=== PATIENT | male | born 1960 | race Caucasian/White ===

== ENCOUNTER 2017-01-10 09:34 | Emergency (ER) | payer OTHER ==
[2017-01-10 09:45] VITALS: BP 136/91
--- NOTE | 2017-01-10 10:17 | EDM.PDOC ---
ED HPI GENERAL MEDICAL PROBLEM - General Chief Complaint: Head Injury Stated Complaint: FELL ON ICE/ MEMORY LOSS Time Seen by Provider: 01/10/17 10:05 Source of Information: Reports: Family (co workers.) History Limitations: Reports: Altered Mental Status (amnesia for any falls tis am. ) - History of Present Illness INITIAL COMMENTS - FREE TEXT/NARRATIVE: 56-year-old male presents to the ED for evaluation of confusion. 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 She has no recollection of falling. So therefore unclear whether he hit his head but is suspect suspect as he is acting confused and has amnesia for the event. He murmurs 86 of blood pressure medication and something for his cholesterol and a baby aspirin daily. He denies pain anywhere other than his right occipital scalp. Reports a headache grade 3-4 out of 10. No nausea or vomiting. No visual changes did not need help to walk. No balance issues. It's unclear whether either fall was witnessed. It's unclear to me how is identified that he actually fell. There is some suggestion that coworkers did see him fall once but they aren't sure if he hit his head. Onset: Today Onset Date: 01/10/17 Onset Time: 07:30 (First fall was reported to be around 0730 hrs. this morningWas between 0 8:30 and 0900 hrs. this morning.) Duration: Hour(s): (Confused with amnesia for the event.) Location: Reports: Head (Right occipital scalp discomfort.) Quality: Reports: Ache Severity: Mild Improves with: Reports: None Worsens with: Reports: None Context: Reports: Trauma Associated Symptoms: Reports: Confusion, Other (Amnesia for the event.). 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: Reports: Other (see below) Headache Pain Score (Numeric/FACES): 6 - Related Data Allergies Allergy/AdvReac Type Severity Reaction Status Date / Time No Known Allergies Allergy Verified 01/10/17 09:45 Home Meds: Home Meds Fish Oil/Center-3 Fatty Acids [Fish Oil 1,000 MG] 2,000 mg PO BID 08/27/15 [ History] Pravastatin [Pravachol] 40 mg PO DAILY 08/27/15 [History] Aspirin 81 mg PO BEDTIME #90 tab.chew 08/29/15 [Rx] Aspirin 81 mg PO DAILY 01/10/17 [History] Hydrochlorothiazide 12.5 mg PO 01/10/17 [History] Lisinopril [Zestril] 20 mg PO 01/10/17 [History] Past Medical History HEENT History: Reports: Impaired Vision Other HEENT History: wears glasses Cardiovascular History: Reports: High Cholesterol, Hypertension, Other (See Below) Other Cardiovascular History: high triglycerides - Past Surgical History HEENT Surgical History: Reports: None Social & Family History - Tobacco Use Smoking Status *Q: Never Smoker Second Hand Smoke Exposure: No - Alcohol Use Days Per Week of Alcohol Use: 1 Number of Drinks Per Day: 2 Total Drinks Per Week: 2 - Recreational Drug Use Recreational Drug Use: No - Living Situation & Occupation Living situation: Reports: Single Occupation: Employed ED ROS GENERAL - Review of Systems Review Of Systems: See Below Constitutional: Denies: Fever, Chills, Malaise, Weakness, Fatigue, Night Sweats , Diaphoresis, Decreased Appetite, Weight Loss HEENT: Reports: No Symptoms. Denies: Contact Lenses, Dental Pain, Ear Discharge , Eye Discharge, Eye Pain, Glasses, Hearing Loss, Nosebleed, Sinus Problem, Throat Pain, Throat Swelling, Vision Change Respiratory: Reports: No Symptoms, Other Cardiovascular: Reports: Blood Pressure Problem Endocrine: Reports: No Symptoms GI/Abdominal: Reports: No Symptoms : Reports: No Symptoms Musculoskeletal: Reports: No Symptoms Skin: Reports: No Symptoms Neurological: Reports: Confusion Psychiatric: Reports: No Symptoms Hematologic/Lymphatic: Reports: No Symptoms Immunologic: Reports: No Symptoms ED EXAM, HEAD INJURY - Physical Exam Exam: See Below Exam Limited By: Other (He is alert and oriented now. But he reports he does not recall falling whatsoever.) General Appearance: Alert, WD/WN, No Apparent Distress Head: Other (Mild tenderness right occipital scalp superiorly. No open wounds or hematoma evident. Tenderness localized to this area.) Nexus Criteria: No: Posterior, Midline Cervical Tenderness, Evidence of Intoxication, Altered Level of Consciousness, Focal Neurological Deficit, Painful Distraction Injuries Eyes: Bilateral Eye: Normal Inspection, PERRL Ears: Normal External Exam, Normal TMs Throat/Mouth: Normal Inspection, Normal Lips, Normal Teeth, Normal Oropharynx, Other (No oropharyngeal injuries.). No: Tongue Swelling, Tonsillar Erythema, Tonsillar Exudate Neck: Non-Tender, Full Range of Motion, Normal Alignment, Normal Inspection Respiratory: No Respiratory Distress, Lungs Clear, Normal Breath Sounds, No Accessory Muscle Use, Other Cardiovascular: Normal Peripheral Pulses (No pain on compression of his ribs or sternum or clavicles.), Regular Rate, Rhythm, No Edema, No Gallop, No Murmur GI/Abdominal Exam: Normal Bowel Sounds, Soft, Non-Tender, No Organomegaly (Male) Exam: No Hernia Back Exam: Normal Inspection, Full Range of Motion, Other (Some mild tenderness to palpation over the right L4-L5 transverse process area. No contusions or abrasions are evident. 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 As Tested, No Motor/Sensory Deficits, Alert, Normal Mood/Affect, Oriented x 3 Skin: Normal Color, Warm/Dry - Heather Coma Score Best Eye Response ([place]): (4) Open Spontaneously Best Verbal Response (Heather): (5) Oriented Best Motor Response (Heather): (6) Obeys Commands Heather Total: 15 Course - Vital Signs Last Recorded V/S: Last Vital Signs Temp 36.5 C 01/10/17 09:41 Pulse 109 H 01/10/17 09:41 Resp 16 01/10/17 09:41 BP 136/91 H 01/10/17 09:41 Pulse Ox 100 01/10/17 09:41 - Orders/Labs/Meds Labs: Laboratory Tests 01/10/17 01/10/17 01/10/17 Range/Units 10:35 10:35 10:35 WBC 9.39 H (4.23-9.07) K/mm3 RBC 4.65 (4.63-6.08) M/mm3 Hgb 13.4 L (13.7-17.5) gm/L Hct 40.3 (40.1-51.0) % MCV 86.7 (79.0-92.2) fl MCH 28.8 (25.7-32.2) pg MCHC 33.3 (32.2-35.5) g/dl RDW Std Deviation 41.4 (35.1-43.9) fL Plt Count 232 (163-337) K/mm3 MPV 10.5 (9.4-12.3) fl Neutrophils % (Manual) 74 H (40-60) % Band Neutrophils % 0 (0-10) % Lymphocytes % (Manual) 20 (20-40) % Atypical Lymphs % 0 % Monocytes % (Manual) 2 (2-10) % Eosinophils % (Manual) 3 (0.8-7.0) % Basophils % (Manual) 1 (0.2-1.2) Platelet Estimate Adequate RBC Morph Comment Normal Sodium 141 (136-145) mEq/L Potassium 3.9 (3.5-5.1) mEq/L Chloride 106 (98-107) mEq/L Carbon Dioxide 24 (21-32) mEq/L Anion Gap 14.9 (5-15) BUN 18 (7-18) mg/dL Creatinine 1.4 H (0.7-1.3) mg/dL Est Cr Clr Drug Dosing 66.58 mL/min Estimated GFR (MDRD) 52 (>60) mL/min BUN/Creatinine Ratio 12.9 L (14-18) Glucose 122 H (74-106) mg/dL Serum Osmolality 294 (280-300) mosm/kg Calcium 8.9 (8.5-10.1) mg/dL Total Bilirubin 0.7 (0.2-1.0) mg/dL AST 26 (15-37) U/L ALT 38 (16-63) U/L Alkaline Phosphatase 61 (46-116) U/L C-Reactive Protein < 0.2 (<1.0) mg/dL Total Protein 7.2 (6.4-8.2) g/dl Albumin 3.4 (3.4-5.0) g/dl Globulin 3.8 gm/dL Albumin/Globulin Ratio 0.9 L (1-2) - Radiology Interpretation Free Text/Narrative:: 56-year-old male presents to the ED with [address] 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 Apparently had a witnessed fall in 0730 hrs. this morning and then apparently fell again outside on slippery snow at between 8:30 and 9:00 this morning. He has no recollection of falling or hitting his head. I amnesia for the event. Does complain of some mild right-sided occipital headache. There is localized tenderness and swelling to this area. No other significant injuries are identified on examination. There is a minimal abrasion to his left olecranon process of elbow. Some minimal tenderness to his right lower back over the transverse processes of L4 and L5. No nausea or vomiting. No evidence of oropharyngeal injury. Plan CT head to be done. By history he has suffered a closed head injury with concussion. Routine labs will be obtained. - Re-Assessments/Exams Free Text/Narrative Re-Assessment/Exam: 01/10/17 11:31 Labs are done. White count was 9.39 with a normal differential 74 % neutrophils no bands. Hemoglobin 13.4 hematocrit of 40.3. Sodium 141 potassium 3.9 chloride 106 bicarbonate and a gap is 14.9. BUNs 18 creatinine is 1.4 with a estimated GFR 52. Glucose 122. Calcium 8.9 liver function normal C- reactive protein less than 0.2. 01/10/17 11:45: CT of the brain reveals grossly dilated lateral ventricles with compression of the white matter in loss of most of the sulci. This is compatible with benign intracranial hypertension. I therefore reassess the patient I could not identify any papilledema and his neuro exam is otherwise completely normal. Therefore this problem is coincidental finding but does need further investigation. Therefore spoke with Dr. Damon neurologist at [facility] who referred me to Dr. Soto-- neurosurgeon. When the neurosurgeon review the CT he identified that this patient was most likely to benefit from a rarely done surgical procedure with decompression of the third ventricle versus having a ventriculoperitoneal shunt placed. He does not do this procedure and therefore suggested [facility] in [place]. I was able to speak with Dr. Pham commissioned fire officer neurosurgeon who referred me to Dr. Geovany López who apparently does do this procedure. I therefore was able to speak with his scheduling nurse and she will schedule an appointment and get a hold of Mr. Goldsmith. I also made his primary care physician Dr. Geronimo aware of the findings today. As far as his injuries are concerned today he has suffered a concussion due to the fact that he has amnesia for the event. It's unclear whether or not his current benign intracranial hypertension issue caused him to fall. An indurated put him off work for the next 5 days. He may return to work with limited pushing pulling or lifting and carrying duties. I suspect he will get called in [place] next week at any rate. Advise is okay to use Tylenol and Motrin when necessary for headache and his right buttock hip pain which is becoming more painful since he's been here reduce swelling. Departure - Departure Time of Disposition: 12:40 Disposition: Home, Self-Care 01 Condition: Fair Clinical Impression: Benign intracranial hypertension, Contusion of lower back and pelvis, initial encounter Head injury, closed, with concussion Qualifiers: Encounter type: initial encounter Loss of consciousness presence/duration: without LOC Qualified Code(s): S06.0X0A - Concussion without loss of consciousness, initial encounter - Discharge Information Instructions: Head Injury, Adult, Idiopathic Intracranial Hypertension Referrals: Pepe Fish MD [Primary Care Provider] - Forms: ED Department Discharge, ED Return to Work/School Form Additional Instructions: Evaluation the emergency room today in regards to fall 2 this morning. Obvious closed head injury with concussion be as you have amnesia for the event are normal recollection of falling whatsoever. This is one of the criteria for concussion. CT scan of the brain did not reveal any intracranial bleeding or fractures. However he did identify a problem with too much fluid within the ventricles that make intra-cerebral spinal fluid. They are about 5 times normal size. This problem is been going on for many years but it deserves further investigation and probable neurosurgical treatment. In regards to fall today and concussion you're off work for the next 5 days due to this illness. No lifting pushing pulling or carrying for 5 days. Follow-up with your physician if you have problems with balance vision changes blurred vision or persistent or worsening headache. Expect neck to be sore tomorrow as well as low back or but talk from falling today. Is okay to take Motrin 600 mg every 6 hours or Tylenol 650 mg every 64 hours for pain relief if needed. I have spoken to neurosurgical clinic in [facility] and you are to be set up with a Dr. Geovany López neurosurgeon at that facility. They are to phone you with an appointment time. If you don't hear from them within the next [address] Geronimo did let him know about the problem as well.
--- NOTE | 2017-01-10 11:01 | CT ---
Head CT Technique: Multiple axial sections through the brain were obtained. Intravenous contrast was not utilized. Comparison: No previous intracranial imaging. Findings: Ventricles are markedly dilated. Sulci over the convexities are within normal limits. No abnormal parenchymal densities are seen. No evidence of intracranial hemorrhage. No midline shift or mass effect is seen. Bone window settings were reviewed which shows mild mucosal thickening within the sphenoid and ethmoid sinuses. Minimal mucosal thickening is seen within left maxillary sinus. Mastoid sinuses and middle ear cavities are clear. No acute calvarial abnormality is seen. Impression: 1. Markedly dilated ventricles out of proportion to the sulci over the convexities. Normal pressure hydrocephalus is a strong possibility. Benign ventriculomegaly is also within the differential. 2. Sinus findings are most likely chronic. 3. No additional abnormality is appreciated on this noncontrast CT study of the brain. Diagnostic code #3
== END 2017-01-10 12:50 | disposition home or self-care (01) ==
LOC: JD.ED 09:34
DX: S06.0X0A Concussion without loss of consciousness, initial encounter (principal); S30.0XXA Contusion of lower back and pelvis, initial encounter; G93.2 Benign intracranial hypertension; Z79.82 Long term (current) use of aspirin; Z79.899 Other long term (current) drug therapy; W19.XXXA Unspecified fall, initial encounter
CPT/HCPCS: 36415; 70450; 70450-26; 80053; 83930; 85025; 86140; 99284; 99284-25

== ENCOUNTER 2021-09-26 08:29 | Day surgery (SDC) | payer OTHER ==
[~2021-09-26 08:29] MED LIST: Acetaminophen 325 MG Tab PO SCH; EPINEPHrine 1 MG/ML SDV ONE; Lactated Ringers 1,000 ML IV SCH; Lidocaine 1%/Sod Bicarbonate in NS 8.4% 1 ML Syringe IDERM PRN; Midazolam 1 MG/ML 2 ML SDV ONE; Ondansetron 4 MG/2 ML SDV ONE; Pregabalin 25 MG Cap PO SCH; Propofol 200 MG/20 ML SDV ONE; Ropivacaine 0.5% 5 MG/ML 30 ML SDV ONE; Sodium Chloride 0.9% 10 ML Syringe FLUSH PRN; Sodium Chloride 0.9% 10 ML Syringe FLUSH SCH; ceFAZolin 2 GM Vial ONE; fentaNYL 100 MCG/2 ML SDV ONE; oxyCODONE ER 10 MG TAB.ER PO SCH
[2021-09-26] MEDS ORDERED: Phenylephrine HCl In 0.9% NaCl 1 MG/10 ML Vial ONE (10:32)
[2021-09-26] MEDS: Morphine 8 MG, EPINEPHrine 0.3 MG, Cefuroxime 750 MG, Ketorolac 30 MG, Sodium Chloride ... PRN ×10 (10:49→11:06)
[2021-09-26] MEDS: Vancomycin 1 GM SDV ONE ×2 (10:49→11:09)
[2021-09-26] MEDS ORDERED: Ondansetron 4 MG/2 ML SDV IVPUSH PRN (10:52)
[2021-09-26] MEDS ORDERED: HYDROmorphone 0.5 MG/0.5 ML Syringe IVPUSH PRN (10:52)
[2021-09-26] MEDS ORDERED: fentaNYL 100 MCG/2 ML SDV IVPUSH PRN (10:52)
[2021-09-26] MEDS ORDERED: ePHEDrine 50 MG/ML SDV ONE (10:53)
[2021-09-26] MEDS ORDERED: Lactated Ringers 1,000 ML ONE ×2 (10:56→11:21)
[2021-09-26] MEDS ORDERED: Propofol 200 MG/20 ML SDV ONE (11:00)
[2021-09-26] MEDS: Triamcinolone Acetonide 40 MG/ML 1 ML SDV ONE ×2 (11:04→11:30)
[2021-09-26] MEDS: Bupivacaine 0.25% 10 ML SDV ONE ×2 (11:05→11:30)
[2021-09-26] MEDS ORDERED: Ketorolac 15 MG/ML SDV ONE (11:17)
[2021-09-26] MEDS ORDERED: oxyCODONE 5 MG Tab PO ONE ×2 (12:30→15:30)
[2021-09-26 15:38] VITALS: BP 113/94; PULSE 70
== END 2021-09-26 16:15 | disposition home or self-care (01) ==
LOC: JD.SDS 08:29
PROVIDERS: ATTEND Orthopaedic Surgery
DX: M17.0 Bilateral primary osteoarthritis of knee (principal); I48.19 Other persistent atrial fibrillation; G47.33 Obstructive sleep apnea (adult) (pediatric); I10 Essential (primary) hypertension; E78.2 Mixed hyperlipidemia; Z79.899 Other long term (current) drug therapy; Z98.890 Other specified postprocedural states
CPT/HCPCS: 0055T; 20610; 27447; 73560; 97110; 97116; 97161; A9270; C1713; C1776; J0171; J0690; J0697; J1885; J2250; J2270; J2405; J2704; J2795; J3301; J3370; J3490; J7120; 01402; 64450; J3010